=== PATIENT | male | born 1995 | race Two or more races ===

== ENCOUNTER 2023-11-14 19:33 | Emergency (ER) | payer OTHER ==
[~2023-11-14] VITALS: Ht 162.6 cm; Wt 57.2 kg
[2023-11-14] MEDS ORDERED: NASAL MIST126 ML NASAL (21:12)
[2023-11-14] MEDS ORDERED: OTOVEL 0.3%-0.1 EACH OPHT (21:12)
== END 2023-11-14 21:19 | disposition home or self-care (01) ==
LOC: ER 19:34
DX: H92.01 Otalgia, right ear (principal)

== ENCOUNTER → 2024-01-10 | Emergency (ER) | payer OTHER ==
[~2024-01-10] VITALS: Ht 167.6 cm; Wt 56.7 kg
[~2024-01-10] MED LIST: NASAL MIST126 ML NASAL; OTOVEL 0.3%-0.1 EACH OPHT
== END | disposition left against medical advice (07) ==
LOC: ER 00:29
DX: Z53.21 Procedure and treatment not carried out due to patient leaving prior to being seen by health care provider (principal)

== ENCOUNTER → 2024-01-10 | Emergency (ER) | payer OTHER ==
[~2024-01-10] VITALS: Ht 167.6 cm; Wt 57.2 kg
[~2024-01-10] MED LIST changes: +CEFTRIAXONE SODIUM 1,000 MG VIAL IM ONE; +TETANUS & DIPHTHERIA TOX,ADULT 0.5 ML VIAL IM ONE; +TRAMADOL HCL 50 MG TABLET PO ONE
== END | disposition designated cancer center or children's hospital (05) ==
LOC: ER 08:14
DX: S05.51XA Penetrating wound with foreign body of right eyeball, initial encounter (principal); W22.8XXA Striking against or struck by other objects, initial encounter; Y93.89 Activity, other specified; Y92.69 Other specified industrial and construction area as the place of occurrence of the external cause